=== PATIENT | male | born 1990 | race Hispanic/Latino ===

== ENCOUNTER 2021-01-16 18:53 | Emergency (ER) | payer SELFPAY ==
--- NOTE | 2021-01-16 20:44 | RAD REPORT ---
EXAM DESCRIPTION: CT - Head Brain Wo Cont - 01/16/2021 8:39 pm CLINICAL HISTORY: HEADACHE COMPARISON: <Comparisons> TECHNIQUE: Axial 5 mm thick images of the head were obtained without IV contrast. All CT scans are performed using dose optimization technique as appropriate and may include automated exposure control or mA/KV adjustment according to patient size. FINDINGS: No intracranial hemorrhage, mass, edema or shift of mid-line structures. No acute infarcti on changes seen. No abnormal extra-axial fluid collections. Ventricles are normal. Mastoid air cells and visualized portions of the paranasal sinuses are clear. No acute bony findings. IMPRESSION: Negative non-contrast CT head examination.
[2021-01-16 20:57] LABS: Basophils % 0.4 % (0-1.3); Hematocrit 48.6 % (39.6-49.0); Lymphocytes % 24.1 % (15.3-44.8); MPV 9.2 fL (7.6-11.3); RBC Red Blood Cell Count 5.91 M/uL (4.33-5.43)
[2021-01-16] MEDS ORDERED: METOCLOPRAMIDE 10 MG/2mL INJ ONE (21:05)
[2021-01-16] MEDS ORDERED: DIPHENHYDRAMINE 50 MG/ML VIAL ONE (21:05)
[2021-01-16] MEDS ORDERED: KETOROLAC 30 MG/ML INJ ONE (21:05)
[2021-01-16] MEDS ORDERED: NA CHLORIDE 0.9% 1,000 ML ONE (21:05)
[2021-01-16 21:17] LABS: ALT/SGPT 158 U/L (12-78); AST/SGOT 38 U/L (15-37); Albumin 4.4 g/dL (3.4-5.0); Alkaline Phosphatase 67 U/L (45-117); BUN Blood Urea Nitrogen 16 mg/dL (7-18); Bicarbonate 28 mmol/L (21-32); Bilirubin Direct 0.2 mg/dL (0-0.2); Bilirubin Total 0.4 mg/dL (0.2-1.0); Glucose Level 94 mg/dL (74-106); Magnesium 2.3 mg/dL (1.8-2.4); Protein, Total 7.8 g/dL (6.4-8.2); Sodium Level 141 mmol/L (136-145); Troponin (Emerg Dept Use Only) < 0.02 ng/mL (0.0-0.045)
--- NOTE | 2021-01-16 21:33 | EDPHYS ---
Physician Documentation [facility] Name: JuanJ ose Kamara Age: 30 yrs Sex: Male : 1990 Arrival Date: 01/16/2021 Time: 18:57 Bed 2 Private MD: Melvi Dos Santos K ED Physician Jhoan Rosales HPI: 01/16 21:08 This 30 yrs old Male presents to ER via Ambulatory with complaints of pm1 Headache, Dizziness, High Blood Pressure, Shoulder Pain. 21:08 The patient complains of pain to the right side of forehead and right occipital area. pm1 The patient describes the headache as aching, constant. Onset: The symptoms/episode began/occurred 1 week(s) ago. Associated signs and symptoms: Pertinent positives: nausea, left shoulder pain and chest pain that started today, Pertinent negatives: fever, neck stiffness, paresthesias, rash, vomiting, weakness. Severity of symptoms: in the emergency department the pain has improved, markedly, a " 1" out of "10". Headache History: Denies prior headaches. The symptoms are alleviated by nothing. the symptoms are aggravated by movement. The patient has not experienced similar symptoms in the past. The patient has not recently seen a physician, the patient's primary care provider is Dr. Melvi Dos Santos. Reports onset of headache after drinking alcohol last weekend. Patient thought that he was dehydrated and after rehydrating became concerned that his headache was still present. Reports lots of stress recently. Onset of left shoulder pain and chest pain onset today. Historical: - Allergies: 19:06 No Known Allergies; ca1 - Home Meds: 19:06 None [Active]; ca1 - PMHx: 19:06 None; ca1 - PSHx: 19:06 None; ca1 - Immunization history:: Client reports having NOT received the Covid vaccine. Flu vaccine is not up to date. - Social history:: Smoking status: Patient reports the use of cigarette tobacco products, denies chronic smoking, but will smoke occasionally. ROS: 21:08 Constitutional: Negative for fever, chills, and weight loss, Eyes: Negative for injury, pm1 pain, redness, and discharge, ENT: Negative for injury, pain, and discharge, Neck: Negative for injury, pain, and swelling, Respiratory: Negative for shortness of breath, cough, wheezing, and pleuritic chest pain. 21:08 MS/Extremity: Negative for injury and deformity, Skin: Negative for injury, rash, and discoloration. 21:08 Back: Negative for injury and pain. 21:08 Cardiovascular: Positive for chest pain, Negative for palpitations. 21:08 Abdomen/GI: Positive for nausea, Negative for abdominal pain, vomiting, diarrhea. 21:08 Neuro: Positive for dizziness, headache, Negative for numbness, tingling, weakness. 21:08 All other systems are negative. Exam: 21:08 Constitutional: This is a well developed, well nourished patient who is awake, alert, pm1 and in no acute distress. Head/Face: Normocephalic, atraumatic. 21:08 Neck: Trachea midline, no thyromegaly or masses palpated, and no cervical lymphadenopathy. Supple, full range of motion without nuchal rigidity, or vertebral point tenderness. No Meningismus. 21:08 Back: No spinal tenderness. No costovertebral tenderness. Full range of motion. Skin: Warm, dry with normal turgor. Normal color with no rashes, no lesions, and no evidence of cellulitis. MS/ Extremity: Pulses equal, no cyanosis. Neurovascular intact. Full, normal range of motion. 21:08 Eyes: Exam is negative for acute changes, Extraocular movements: no acute changes, Conjunctiva: no acute changes, no injection, Sclera: no acute changes, icterus, is not appreciated. 21:08 ENT: Exam is negative for acute changes, Mouth: Lips: normal, Oral mucosa: normal, pink and intact, moist. 21:08 Chest/axilla: Exam negative for acute changes, Inspection: normal, Palpation: is normal, no crepitus, no tenderness. 21:08 Cardiovascular: Rate: normal, Rhythm: regular, Pulses: no pulse deficits are appreciated. 21:08 Respiratory: Exam negative for acute changes, respiratory distress, shortness of breath, Breath sounds: are clear throughout. 21:08 Abdomen/GI: Inspection: abdomen appears normal, Palpation: abdomen is soft and non-tender, in all quadrants. 21:08 Neuro: Exam negative for acute changes, Orientation: is normal, Mentation: is normal, Motor: is normal, moves all fours, Sensation: is normal, no obvious gross deficits, Gait: is steady, at a normal pace, without difficulty. Vital Signs: 19:04 BP 139 / 96; Pulse 73; Resp 18 S; Temp 97.9(TE); Pulse Ox 99% on R/A; Weight 88.45 kg ca1 (R); Height 5 ft. 9 in. (175.26 cm) (R); Pain 5/10; 21:47 BP 115 / 89; Pulse 75; Resp 15; Temp 98.2(O); Pulse Ox 100% ; Pain 0/10; bs2 19:04 Body Mass Index 28.80 (88.45 kg, 175.26 cm) ca1 MDM: 20:16 Patient medically screened. pm1 21:32 Data reviewed:. Data interpreted: Pulse oximetry: on room air is 99 %. Interpretation: pm1 normal. Counseling: I had a detailed discussion with the patient and/or guardian regarding: the historical points, exam findings, and any diagnostic results supporting the discharge/admit diagnosis, lab results, radiology results, the need for outpatient follow up, to return to the emergency department if symptoms worsen or persist or if there are any questions or concerns that arise at home. 01/16 20:28 Order name: Basic Metabolic Panel; Complete Time: 21:27 pm01/16 20:28 Order name: CBC with Diff; Complete Time: 21:05 pm01/16 20:28 Order name: CT Head Brain wo Cont; Complete Time: 21:00 pm01/16 20:28 Order name: LFT's; Complete Time: 21:27 pm01/16 20:28 Order name: Magnesium; Complete Time: 21:27 pm01/16 20:28 Order name: Troponin (emerg Dept Use Only); Complete Time: 21:27 pm01/16 20:28 Order name: XRAY Chest (1 view); Complete Time: 21:47 pm01/16 20:28 Order name: EKG; Complete Time: 20:28 pm01/16 20:28 Order name: Cardiac monitoring; Complete Time: 20:51 pm01/16 20:28 Order name: EKG - Nurse/Tech; Complete Time: 20:51 pm01/16 20:28 Order name: IV Saline Lock; Complete Time: 20:51 pm01/16 20:28 Order name: Labs collected and sent; Complete Time: 20:51 pm01/16 20:28 Order name: O2 Per Protocol; Complete Time: 20:51 pm1 01/16 20:28 Order name: O2 Sat Monitoring; Complete Time: 20:51 pm1 Administered Medications: 20:50 Drug: NS 0.9% 1000 ml Route: IV; Rate: 1000 ml; Site: right antecubital; lp1 21:47 Follow up: IV Status: Completed infusion; IV Intake: 1000ml bs2 20:51 Drug: Reglan (metoCLOPramide) 10 mg Route: IVP; Site: right antecubital; lp1 21:47 Follow up: Response: No adverse reaction bs2 20:51 Drug: Ketorolac 15 mg Route: IVP; Site: right antecubital; lp1 21:47 Follow up: Response: No adverse reaction bs2 20:51 Drug: Benadryl (diphenhydrAMINE) 25 mg Route: IVP; Site: right antecubital; lp1 21:47 Follow up: Response: No adverse reaction bs2 Disposition: 22:22 Co-signature as Attending Physician, Jhoan Rosales MD. pkl Disposition Summary: 01/16/21 21:33 Discharge Ordered Location: Home pm1 Problem: new pm1 Symptoms: have improved pm1 Condition: Stable pm1 Diagnosis - Headache pm1 - Chest pain, unspecified pm1 Followup: pm1 - With: Emergency Department - When: As needed - Reason: Worsening of condition Followup: pm1 - With: Melvi Dos Santos MD - When: 2 - 3 days - Reason: Recheck today's complaints, Continuance of care, Re-evaluation by your physician Discharge Instructions: - Discharge Summary Sheet pm1 - Nonspecific Chest Pain, Adult pm1 - General Headache Without Cause pm1 - Tension Headache, Adult pm1 Forms: - Medication Reconciliation Form pm1 - Thank You Letter pm1 - Antibiotic Education pm1 - Prescription Opioid Use pm1 Signatures: Dispatcher [employer] Jhoan Coburn MD MD pkBrina Bass RN RN lp1 Ricky Aaron NP [employer] pm1 Nargis Rodriguez RN RN Kaylynn Razo bs2
--- NOTE | 2021-01-16 21:33 | ER ---
Nurse's Notes [facility] Name: Juan Jose Kamara Age: 30 yrs Sex: Male : 1990 Arrival Date: 01/16/2021 Time: 18:57 Bed 2 Private MD: Melvi Dos Santos K Diagnosis: Headache;Chest pain, unspecified Presentation: 01/16 19:04 Chief complaint: Patient states: L shoulder, L arm pain today. Denies injury. Been ca1 feeling sick the past week with dizziness, headache and nausea. Coronavirus screen: Client denies travel out of the [place] in the last 14 days. At this time, the client does not indicate any symptoms associated with coronavirus-19. Ebola Screen: Patient negative for fever greater than or equal to 101.5 degrees Fahrenheit, and additional compatible Ebola Virus Disease symptoms Patient denies exposure to infectious person. Patient denies travel to an Ebola-affected area in the 21 days before illness onset. No symptoms or risks identified at this time. Initial Sepsis Screen: Does the patient meet any 2 criteria? No. Patient's initial sepsis screen is negative. Does the patient have a suspected source of infection? No. Patient's initial sepsis screen is negative. Risk Assessment: Do you want to hurt yourself or someone else? Patient reports no desire to harm self or others. Onset of symptoms. 19:04 Method Of Arrival: Ambulatory ca1 19:04 Acuity: JUDY 3 ca1 Triage Assessment: 21:45 Headache History: Denies prior headaches. General: Appears in no apparent distress. bs2 comfortable, well groomed, well developed, well nourished, Behavior is calm, cooperative, appropriate for age. Pain: Pain began gradually, 2-3 days ago. Also complains of nausea. Pain: Complains of pain in face. Historical: - Allergies: 19:06 No Known Allergies; ca1 - Home Meds: 19:06 None [Active]; ca1 - PMHx: 19:06 None; ca1 - PSHx: 19:06 None; ca1 - Immunization history:: Client reports having NOT received the Covid vaccine. Flu vaccine is not up to date. - Social history:: Smoking status: Patient reports the use of cigarette tobacco products, denies chronic smoking, but will smoke occasionally. Screenin:52 Abuse screen: Denies threats or abuse. Denies injuries from another. Nutritional lp1 screening: No deficits noted. Tuberculosis screening: No symptoms or risk factors identified. Fall Risk None identified. Assessment: 20:51 General: Appears in no apparent distress. Behavior is calm, cooperative, appropriate lp1 for age. Pain: Complains of pain in left shoulder Pain currently is 4 out of 10 on a pain scale. Quality of pain is described as aching. Neuro: Level of Consciousness is awake, alert, obeys commands, Oriented to person, place, time, situation, Moves all extremities. Full function Gait is steady, Intact Reports headache. Cardiovascular: Patient's skin is warm and dry. Respiratory: Respiratory effort is even, unlabored. GI: Abdomen is non-distended. : No signs and/or symptoms were reported regarding the genitourinary system. EENT: No signs and/or symptoms were reported regarding the EENT system. Derm: Skin is pink, warm \T\ dry. Musculoskeletal: No deficits noted. Vital Signs: 19:04 BP 139 / 96; Pulse 73; Resp 18 S; Temp 97.9(TE); Pulse Ox 99% on R/A; Weight 88.45 kg ca1 (R); Height 5 ft. 9 in. (175.26 cm) (R); Pain 5/10; 21:47 BP 115 / 89; Pulse 75; Resp 15; Temp 98.2(O); Pulse Ox 100% ; Pain 0/10; bs2 19:04 Body Mass Index 28.80 (88.45 kg, 175.26 cm) ca1 ED Course: 18:57 Patient arrived in ED. mr 18:57 Melvi Dos Santos MD is Private Physician. mr 19:06 Triage completed. ca1 19:06 Arm band placed on right wrist. ca1 20:16 Ricky Aaron NP is PHCP. pm1 20:16 Jhoan Rosales MD is Attending Physician. pm1 20:39 CT Head Brain wo Cont In Process Unspecified. EDMS 20:50 Brina Davis, RADHA is Primary Nurse. lp1 20:50 Inserted saline lock: 20 gauge in right antecubital area, using aseptic technique. lp1 Blood collected. 21:08 XRAY Chest (1 view) In Process Unspecified. EDMS 21:33 Melvi Dos Santos MD is Referral Physician. pm1 21:44 No provider procedures requiring assistance completed. IV discontinued, intact, bs2 bleeding controlled, No redness/swelling at site. Pressure dressing applied. 21:46 Patient has correct armband on for positive identification. Call light in reach. Side bs2 rails up X 1. Pulse ox on. NIBP on. Lights dimmed. Administered Medications: 20:50 Drug: NS 0.9% 1000 ml Route: IV; Rate: 1000 ml; Site: right antecubital; lp1 21:47 Follow up: IV Status: Completed infusion; IV Intake: 1000ml bs2 20:51 Drug: Reglan (metoCLOPramide) 10 mg Route: IVP; Site: right antecubital; lp1 21:47 Follow up: Response: No adverse reaction bs2 20:51 Drug: Ketorolac 15 mg Route: IVP; Site: right antecubital; lp1 21:47 Follow up: Response: No adverse reaction bs2 20:51 Drug: Benadryl (diphenhydrAMINE) 25 mg Route: IVP; Site: right antecubital; lp1 21:47 Follow up: Response: No adverse reaction bs2 Intake: 21:47 IV: 1000ml; Total: 1000ml. bs2 Outcome: 21:33 Discharge ordered by MD. pm1 21:46 Discharged to home with family. bs2 21:46 Discharged to home ambulatory. 21:46 Condition: improved 21:46 Discharge instructions given to patient, family, Instructed on discharge instructions, follow up and referral plans. Demonstrated understanding of instructions, follow-up care. 21:48 Patient left the ED. bs2 Signatures: Dispatcher [employer] TEEWI Maura Brennan Laura RN RN lp1 Ricky Aaron, [employer] pm1 Nargis Rodriguez RN RN Kaylynn Razo bs2
--- NOTE | 2021-01-16 21:44 | RAD REPORT ---
EXAM DESCRIPTION: RAD - Chest Single View - 01/16/2021 9:07 pm CLINICAL HISTORY: CHEST PAIN COMPARISON: None TECHNIQUE: AP portable chest image was obtained 01/16/2021 9:07 pm . FINDINGS: Lungs are clear. Heart and vasculature are normal. No measurable pleural effusion and no p neumothorax. No acute bony abnormality seen. No acute aortic findings suspected. IMPRESSION: No acute cardiopulmonary process.
[2021-01-16 21:55] VITALS: BP 115/89; TEMP 98.2; O2SAT 100
--- NOTE | 2021-01-17 10:29 | EKG ---
Test Date: 2021-01-16 Test Time: 20:56:01 Supervisor Pressing Department: [facility] MEASUREMENT RESULTS: Intervals: Rate: 62 ID: [id number] QRSD: 96 QT: 414 QTc: 420 [place]: P: 72 ID: [id number] QRS: 57 T: 46 INTERPRETIVE STATEMENTS: Normal sinus rhythm Normal ECG No previous ECG available for comparison Electronically Signed On 01-17-21 10:28:31 CDT by Sarbjit Elaine
== END 2021-01-16 21:48 | disposition home or self-care (01) ==
LOC: ER 18:53
DX: R07.9 Chest pain, unspecified (principal); F17.210 Nicotine dependence, cigarettes, uncomplicated
CPT/HCPCS: 36415; 70450; 71045; 80048; 80076; 83735; 84484; 85025; 93005; 96361; 96374; 96375; 99284; J1200; J2765; J7030

== ENCOUNTER 2023-12-09 19:49 | Emergency (ER) | payer BC, OTHER, SELFPAY ==
[2023-12-09] MEDS ORDERED: ONDANSETRON 4 MG/2 ML VIAL ONE (20:34)
[2023-12-09] MEDS ORDERED: NA CHLORIDE 0.9% 1,000 ML ONE (20:35)
[2023-12-09] MEDS ORDERED: FAMOTIDINE 20 MG/2 ML VIAL IV ONE (20:35)
[2023-12-09] MEDS ORDERED: KETOROLAC 30 MG/ML INJ ONE (20:35)
[2023-12-09 20:48] LABS: Absolute Eosinophils 0.1 K/uL (0-0.5); Absolute Lymphocytes (CBC) 1.8 K/uL (0.7-4.9); Absolute Monocytes 0.5 K/uL (0.1-1.3); Absolute Neutrophil 8.5 K/uL (1.8-8.0); Basophils % 0.4 % (0-1.3); Eosinophils % 0.8 % (0-4.4); Hematocrit 46.6 % (39.6-49.0); Hemoglobin 15.3 g/dL (13.6-17.9); Lymphocytes % 16.5 % (15.3-44.8); MCH 27.3 pg (27.0-35.0); MCHC 32.7 g/dL (32.0-36.0); MCV 83.4 fL (80-100); MPV 9.2 fL (7.6-11.3); Monocytes % 4.8 % (3.3-12.3); Neutrophils % 77.5 % (41.7-73.7); Nucleated Red Blood Cells % 0.1 % (0-0); Platelets 194 thou/uL (152-406); RBC Red Blood Cell Count 5.59 M/uL (4.33-5.43); Red Cell Distribution Width 14.8 % (12.1-15.2)
[2023-12-09 20:57] LABS: Albumin 3.8 g/dL (3.4-5.0); Albumin/Globulin Ratio 1.2 (1.1-1.8); Anion Gap 9.6 mEq/L (5.0-15.0); Bilirubin Total 0.3 mg/dL (0.2-1.0); Globulin 3.1 g/dL (2.3-3.5); Potassium 3.6 mEq/L (3.5-5.1); Protein, Total 6.9 g/dL (6.4-8.2)
--- NOTE | 2023-12-09 21:25 | RAD REPORT ---
EXAM DESCRIPTION: US - Abdomen Exam Limited - 12/09/2023 8:54 pm CLINICAL HISTORY: ABD PAIN COMPARISON: No comparisons FINDINGS: The gallbladder demonstrates a few shadowing gallstones with sludge. No pericholecystic fl uid. The common bile duct is normal measuring 4 mm. No sonographic Hong's sign. The gallbladder is distended. Gallbladder wall measures 3 millimeters which is borderline thickened. The liver demonstrates no findings of intrahepatic biliary dilatation. IMPRESSION: Cholelithiasis with borderline gallbladder wall thickening and gallbladder distension. N o sonographic Hong sign reported. These findings are nonspecific and neither confirm nor exclude ac [place] cholecystitis. If there is persistent clinical concern, could consider HIDA scan to evaluate for cystic duct patency.
--- NOTE | 2023-12-09 22:07 | EDPHYS ---
Physician Documentation [facility] Name: Juan Jose Kamara Age: 33 yrs Sex: Male : 1990 Arrival Date: 12/09/2023 Time: 19:49 Bed 7 Private MD: ED Physician Paulo Kramer HPI: 12/08 20:11 This 33 yrs old Male presents to ER via Unassigned with complaints of kb Abdominal Pain. 20:11 Pt is a 33 year old male who presents for upper abd pain that started 2 hours ago. kb Reports waves of nausea. Denies vomiting, diarrhea, fever. States he had a similar episode last week that resolved after about 2 hours, but it wasn't as bad. . Historical: - Allergies: 20:15 No Known Allergies; as6 - PMHx: 20:15 None; as6 - PSHx: 20:15 None; as6 - Immunization history:: Adult Immunizations up to date. - Infectious Disease History:: Denies. - Social history:: Smoking status: Patient reports the use of cigarette tobacco products, Reported history of juuling and/or vaping. Patient uses alcohol, only on a social basis. ROS: 20:11 Constitutional: As per HPI kb Exam: 20:11 Head/Face: Normocephalic, atraumatic. ENT: Moist Mucous membranes Cardiovascular: kb Regular rate Respiratory: Respirations even and unlabored. No increased work of breathing. Talking in full sentences Abdomen/GI: Soft, non-tender. No distention Skin: Warm, dry with normal turgor. Normal color. MS/ Extremity: Pulses equal, no cyanosis. Neurovascular intact. Full, normal range of motion. Neuro: Awake and alert, GCS 15, oriented to person, place, time, and situation. Moves all extremities. Normal gait. 20:11 Constitutional: The patient appears alert, awake, uncomfortable, Vital Signs: 20:13 BP 146 / 95; Pulse 70; Resp 18 S; Temp 97.4(O); Pulse Ox 100% on R/A; Weight 86.18 kg; as6 Height 5 ft. 9 in. ; Pain 9/10; 22:15 BP 128 / 76; Pulse 88; Resp 15; Temp 98.1; Pulse Ox 100% on R/A; Pain 0/10; bm8 20:13 Body Mass Index 28.06 (86.18 kg, 175.26 cm) as6 20:13 Pain Scale: Adult as6 22:15 Pain Scale: Adult bm8 Catracho Coma Score: 22:15 Eye Response: spontaneous(4). Motor Response: obeys commands(6). Verbal Response: bm8 oriented(5). Total: 15. MDM: 19:52 Patient medically screened. kb 22:05 Data reviewed: vital signs, nurses notes. kb 22:05 Differential diagnosis: cholecystitis, Cholelithiasis, gastroesophageal reflux disease, kb non-specific abd pain, pancreatitis. Counseling: I had a detailed discussion with the patient and/or guardian regarding the historical points, exam findings, and any diagnostic results supporting the discharge/admit diagnosis, lab results, radiology results, the need for outpatient follow up, a general surgeon, to return to the emergency department if symptoms worsen or persist or if there are any questions or concerns that arise at home. Response to treatment: the patient's symptoms have markedly improved after treatment. 12/08 20:11 Order name: CBC with Diff; Complete Time: 20:53 kb 12/08 20:11 Order name: CMP; Complete Time: 21:04 kb 12/08 20:11 Order name: Lipase; Complete Time: 21:04 kb 12/08 20:11 Order name: Abdomen Limited US; Complete Time: 21:33 kb 12/08 20:11 Order name: IV Saline Lock; Complete Time: 20:35 kb 12/08 20:11 Order name: Labs collected and sent; Complete Time: 20:35 kb Administered Medications: 21:37 Drug: NS 0.9% IV 1000 ml IV at 1 bolus Per protocol; 1000 mL bolus Route: IV; Rate: 1 bm8 bolus; Site: right antecubital; 22:17 Follow up: Response: No adverse reaction; IV Status: Completed infusion; IV Intake: bm8 1000ml 21:37 Drug: Famotidine IVP 20 mg IVP once; dilute with 10 mL 0.9% NaCl; give over 2 minutes bm8 Route: IVP; Site: right antecubital; 22:17 Follow up: Response: No adverse reaction bm8 21:37 Drug: Ondansetron IVP 4 mg IVP once; over 2 minutes Route: IVP; Site: right antecubital;bm8 22:17 Follow up: Response: No adverse reaction bm8 21:38 Drug: TORadol - Ketorolac IVP 15 mg IVP once Route: IVP; Site: right antecubital; bm8 22:17 Follow up: Response: No adverse reaction bm8 Disposition Summary: 12/09/23 22:06 Discharge Ordered Notes: Location: Home kb Condition: Stable kb Diagnosis - Other cholelithiasis without obstruction kb Followup: kb - With: Emergency Department - When: As needed - Reason: Worsening of condition Followup: kb - With: Private Physician - When: 2 - 3 days - Reason: Recheck today's complaints, Continuance of care, Re-evaluation by your physician Discharge Instructions: - Discharge Summary Sheet kb - Cholelithiasis, [id number] kb Forms: - Medication Reconciliation Form kb - Antibiotic Education kb - Prescription Opioid Use kb - Patient Portal Instructions kb - Leadership Thank You Letter kb Prescriptions: - Zofran 4 mg Oral tablet - take 1 tablet ORAL route every 6 hours As needed; 12 tablet; Refills: 0, kb Product Selection Permitted - dicyclomine 20 mg Oral tablet - take 1 tablet ORAL route 4 times per day As needed; 20 tablet; Refills: 0, kb Product Selection Permitted Addendum: 12/11/2023 05:40 I was immediately available for consultation during this patient's visit. I did not e c2 personally see the patient or discuss the patient with the AYAH. . Signatures: Dispatcher [employer] Iris Camejo, DIRECTOR OF THERAPY SERVICES-C DIRECTOR OF THERAPY SERVICES-Juan Alberto Duff RN RN as6 Paulo Kramer MD MD ec2 Moses Jean-Baptiste RN RN bm8 Corrections: (The following items were deleted from the chart) 12/08 22:06 22:05 Differential diagnosis: dvt, strain, spasm, sciatica kb kb
--- NOTE | 2023-12-09 22:07 | ER ---
Nurse's Notes [facility] Name: Juan Jose Kamara Age: 33 yrs Sex: Male : 1990 Arrival Date: 12/09/2023 Time: 19:49 Bed 7 Private MD: Diagnosis: Other cholelithiasis without obstruction Presentation: 12/08 20:13 Chief complaint: Patient states: upper abdominal pain. Coronavirus screen: At this as6 time, the client does not indicate any symptoms associated with coronavirus-19. Ebola Screen: No symptoms or risks identified at this time. Initial Sepsis Screen: Does the patient meet any 2 criteria? No. Patient's initial sepsis screen is negative. Does the patient have a suspected source of infection? No. Patient's initial sepsis screen is negative. Risk Assessment: Do you want to hurt yourself or someone else? Patient reports no desire to harm self or others. Onset of symptoms was December 09, 2023. 20:13 Method Of Arrival: Ambulatory as6 20:13 Acuity: JUDY 3 as6 Triage Assessment: 22:19 General: Appears in no apparent distress. comfortable, Behavior is calm, cooperative, bm8 appropriate for age. Pain: Denies pain. Historical: - Allergies: 20:15 No Known Allergies; as6 - PMHx: 20:15 None; as6 - PSHx: 20:15 None; as6 - Immunization history:: Adult Immunizations up to date. - Infectious Disease History:: Denies. - Social history:: Smoking status: Patient reports the use of cigarette tobacco products, Reported history of juuling and/or vaping. Patient uses alcohol, only on a social basis. Screenin:15 [facility] ED Fall Risk Assessment (Adult) History of falling in the last 3 months, bm8 including since admission No falls in past 3 months (0 pts) Confusion or Disorientation No (0 pts) Intoxicated or Sedated No (0 pts) Impaired Gait No (0 pts) Mobility Assist Device Used No (0 pt) Altered Elimination No (0 pt) Score/Fall Risk Level 0 - 2 = Low Risk Oriented to surroundings, Maintained a safe environment, Educated pt \T\ family on fall prevention, incl call for assistance when getting out of bed. Abuse screen: Denies threats or abuse. Nutritional screening: No deficits noted. Tuberculosis screening: No symptoms or risk factors identified. Assessment: 22:15 Reassessment: Patient appears in no apparent distress at this time. Patient and/or bm8 family updated on plan of care and expected duration. Pain level reassessed. Patient is alert, oriented x 3, equal unlabored respirations, skin warm/dry/pink. Patient denies pain at this time. Patient states feeling better. Patient states symptoms have improved. 22:19 GI: Bowel sounds present X 4 quads. Abd is soft and non tender. bm8 Vital Signs: 20:13 BP 146 / 95; Pulse 70; Resp 18 S; Temp 97.4(O); Pulse Ox 100% on R/A; Weight 86.18 kg; as6 Height 5 ft. 9 in. ; Pain 9/10; 22:15 BP 128 / 76; Pulse 88; Resp 15; Temp 98.1; Pulse Ox 100% on R/A; Pain 0/10; bm8 20:13 Body Mass Index 28.06 (86.18 kg, 175.26 cm) as6 20:13 Pain Scale: Adult as6 22:15 Pain Scale: Adult bm8 Catracho Coma Score: 22:15 Eye Response: spontaneous(4). Motor Response: obeys commands(6). Verbal Response: bm8 oriented(5). Total: 15. ED Course: 19:52 Patient arrived in ED. im 19:52 Iris Chaudhry FNP-C is PHCP. kb 19:52 Paulo Kramer MD is Attending Physician. kb 20:13 Arm band placed on. as6 20:15 Triage completed. as6 20:20 Moses Jean-Baptiste, RN is Primary Nurse. bm8 20:35 CBC with Diff Sent. bc6 20:35 CMP Sent. bc6 20:35 Lipase Sent. bc6 20:36 Initial lab(s) drawn, by me, sent to lab. Inserted saline lock: 20 gauge in right bc6 antecubital area, using aseptic technique. Blood collected. 20:56 Abdomen Limited US In Process Unspecified. EDMS 22:15 Patient has correct armband on for positive identification. Bed in low position. Call bm8 light in reach. Side rails up X 1. Adult w/ patient. Provided Education on: post er care. Client placed on continuous cardiac and pulse oximetry monitoring. NIBP monitoring applied. Pulse ox on. NIBP on. Door closed. Noise minimized. Visitors limited. 22:15 No provider procedures requiring assistance completed. IV discontinued, intact, bm8 bleeding controlled, No redness/swelling at site. Pressure dressing applied. Administered Medications: 21:37 Drug: NS 0.9% IV 1000 ml IV at 1 bolus Per protocol; 1000 mL bolus Route: IV; Rate: 1 bm8 bolus; Site: right antecubital; 22:17 Follow up: Response: No adverse reaction; IV Status: Completed infusion; IV Intake: bm8 1000ml 21:37 Drug: Famotidine IVP 20 mg IVP once; dilute with 10 mL 0.9% NaCl; give over 2 minutes bm8 Route: IVP; Site: right antecubital; 22:17 Follow up: Response: No adverse reaction bm8 21:37 Drug: Ondansetron IVP 4 mg IVP once; over 2 minutes Route: IVP; Site: right antecubital;bm8 22:17 Follow up: Response: No adverse reaction bm8 21:38 Drug: TORadol - Ketorolac IVP 15 mg IVP once Route: IVP; Site: right antecubital; bm8 22:17 Follow up: Response: No adverse reaction bm8 Medication: 22:15 VIS not applicable for this client. bm8 Intake: 22:17 IV: 1000ml; Total: 1000ml. bm8 Outcome: 22:06 Discharge ordered by . kristen 22:15 Discharged to home ambulatory, with family, bm8 22:15 Condition: stable 22:15 Discharge instructions given to patient, family, Instructed on discharge instructions, follow up and referral plans. medication usage, safety practices, Demonstrated understanding of instructions, follow-up care, medications, Prescriptions given X 2, 22:19 Patient left the ED. bm8 Signatures: Dispatcher [employer] EDIris Gómez, Juan Alberto Bal RN RN as6 Cony Huggins Itzel im McDonald, Brad, RN RN bm8
[2023-12-09 22:32] VITALS: O2SAT 100
[2023-12-09 22:33] VITALS: BP 128/76; TEMP 98.1
== END 2023-12-09 22:19 | disposition home or self-care (01) ==
LOC: ER 19:49
DX: K80.80 Other cholelithiasis without obstruction (principal)
CPT/HCPCS: 96361; 85025; 36415; 83690; 80053; 76705; 96375; 96374; 99284; J2405; J7030